=== PATIENT | female | born 1950 | race Caucasian/White ===

== ENCOUNTER 2021-08-13 14:26 | Emergency (ER) | payer OTHER, BC ==
[~2021-08-13] VITALS: Ht 170.2 cm; Wt 90.7 kg
[2021-08-13] MEDS ORDERED: AIRDUO DIGIHAL1 EAC1 INH (14:49)
[2021-08-13] MEDS ORDERED: GEODON40 MG PO (14:51)
[2021-08-13] MEDS ORDERED: GEODON80 MG PO (14:52)
[2021-08-13] MEDS ORDERED: TOPROL XL50 MG (14:53)
[2021-08-13] MEDS ORDERED: LEVO-T100 MCG PO (14:53)
[2021-08-13 15:03] LABS: ABSOLUTE NEUTROPHILS 4.8 thou/uL (1.4-8.2); BASOPHILS 0.7 % (0.0-2.0); HEMATOCRIT 38.9 % (37.0-47.0); HEMOGLOBIN 12.7 gm/dL (12.0-15.0); LYMPHOCYTES 20.5 % (24.0-44.0); MCH 31.2 pg (26.0-34.0); MCHC 32.6 g/dL (28.0-37.0); MCV 95.5 fL (80.0-100.0); MONOCYTES 7.2 % (1.0-8.0); PLATELET COUNT 210 thou/uL (150-400); POLYS 68.6 % (36.0-66.0); RBC 4.07 mil/uL (4.20-5.00); RDW 14.3 % (10.5-14.5)
[2021-08-13 15:10] LABS: CALCIUM 10.2 mg/dL (8.5-10.1); CREATININE 1.4 mg/dL (0.6-1.0); POTASSIUM 3.9 mmol/L (3.5-5.1)
[2021-08-13] MEDS ORDERED: VALIUM10 MG PO (17:04)
[2021-08-13] MEDS ORDERED: HUMALOG100 UNIT/1 SUBQ (17:04)
[2021-08-13] MEDS ORDERED: OZEMPIC1 MG/0.71 SUBQ (17:04)
[2021-08-13 21:05] LABS: URINE BILIRUBIN NEGATIVE (Negative); URINE BLOOD NEGATIVE (Negative); URINE CLARITY SL CLOUDY; URINE COLOR YELLOW; URINE GLUCOSE-RANDOM* NEGATIVE (Negative); URINE KETONES NEGATIVE (Negative); URINE NITRITE-REFLEX NEGATIVE (Negative); URINE PROTEIN (DIPSTICK) NEGATIVE (Negative); URINE UROBILINOGEN 0.2 E.U./dl (0.2-1.0)
[2021-08-13 21:06] LABS: URINE LEUKOCYTES-REFLEX 1+ (Negative)
[2021-08-13 21:14] LABS: AMP/METHAMP Negative (Negative); BARBITURATES Negative (Negative); BENZODIAZEPINES POSITIVE (Negative); COCAINE Negative (Negative); METHADONE Negative (Negative); OPIATES Negative (Negative); PCP Negative (Negative)
[2021-08-13 21:26] LABS: MUCUS 0-3 Light strn/LPF (None Seen); SQUAMOUS 0-3 Few /LPF (0-3); URINE RBC 3-10 Few /HPF (NONE SEEN); URINE WBC-REFLEX 6-15 Few /HPF (0-5)
[2021-08-13 21:27] LABS: CALCIUM OXALATE 4-10 Moderate /LPF (None Seen); HYALINE CASTS 0-3 Few /LPF (None Seen)
[2021-08-13 21:31] VITALS: BP 141/82
--- NOTE | 2021-08-14 07:09 | EKG ---
[place] [address] [facility] [place] [address] ELECTROCARDIOGRAM REPORT Name: SCAR MENDOZA [facility] [id number] Admission: 08/13/21 Attend Phys: Discharge: 08/13/21 Date of : 46 Report #: [id number] [facility] ED Test Date: 2021-08-13 Test Time: 14:41:06 Pat Name: SCAR MENDOZA Department: Room: Gender: F Transition Program [facility] 1950 Requested By: Alex Hurst Order Number: [id number] MD: Brien Higgins Measurements Intervals [place] Rate: 93 P: 23 OK: 150 QRS: 1 QRSD: 85 T: 127 QT: 346 QTc: 431 Interpretive Statements Sinus rhythm Low voltage, precordial leads No previous ECG available for comparison Electronically Signed On 08-14-2021 7:09:36 CDT by Brien Higgins [email or web address] <ELECTRONICALLY SIGNED> By: Brien Higgins MD, [facility] 08/14/21 0709 1441 1441 Brien Higgins MD, FACC /EPI
== END 2021-08-13 21:45 ==
LOC: ER 14:26
PROVIDERS: Nurse Practitioner
DX: Z13.30 Encounter for screening examination for mental health and behavioral disorders, unspecified (principal); Z20.822 Contact with and (suspected) exposure to COVID-19; E11.9 Type 2 diabetes mellitus without complications; J45.909 Unspecified asthma, uncomplicated; Z79.899 Other long term (current) drug therapy; Z88.2 Allergy status to sulfonamides

== ENCOUNTER 2021-08-13 15:35 | Inpatient (IN) | payer OTHER, BC ==
[~2021-08-13] VITALS: Ht 162.6 cm; Wt 72.6 kg
[~2021-08-13 15:35] MED LIST: AIRDUO DIGIHAL1 EAC1 INH; GEODON40 MG PO; GEODON80 MG PO; LEVO-T100 MCG PO; TOPROL XL50 MG
[2021-08-13] MEDS ORDERED: HUMALOG100 UNIT/1 SUBQ (17:04)
[2021-08-13] MEDS ORDERED: VALIUM10 MG PO (17:04)
[2021-08-13] MEDS ORDERED: OZEMPIC1 MG/0.71 SUBQ (17:04)
--- NOTE | 2021-08-13 23:31 | NUR ---
PT WAS ADMITTED TO [facility] FROM [facility] ON AT 2145. PT WAS COOPERATIVE WITH ADMISSION PROCESS. PT WAS ALERT AND ORIENTED X3. PT STATED HER MAIN ISSUE IS FEELING VERY DEPRESSED. PT STATED HER DOCTOR WANTED HER TO BE ADMITTED. PT STATED SHE HAS A HISTORY OF BIPOLAR. PT STATED THAT SHE HAS BEEN FEELING VERY TIRED LATELY. PT STATED SHE HAS FALLEN SIX TIMES IN THE LAST SIX MONTHS. PT LIVES AT HOME WITH HER , WHO PT STATES IS HAVING "COGNITIVE DECLINE." SKIN ASSESSMENT WAS PERFOMED; SKIN WAS UNREMARKABLE OTHER THAN BEING DRY. PT DOES HAVE A HEALED WOUND ON HER LEFT WRIST THAT PT STATES SHE OBTAINED WHEN "CHOPPING WOOD." [place] PT'S MAIN CONCERN WAS GETTING A SLEEP MEDICATION. PT STATED SHE HAS BEEN TAKING VALIUM FOR 40 YEARS. PT WANTED TO TAKE VALIUM TO SLEEP TONIGHT. VITAL SIGNS WERE OBTAINED ON ADMIT; BLOOD PRESSURE WAS 151/101. OBTAINED ORDERS FOR LOPRESSOR STARTED TONIGHT. PT DENIED SI/HI AND AVH.
[2021-08-13 23:47] VITALS: BP 151/101
[2021-08-14 05:59] LABS: CHOLESTEROL 261 mg/dL (<200); HDL CHOLESTEROL 39 mg/dL (>40); LDL CHOLESTEROL 182 mg/dL (<100); TC:HDL 6.7 Ratio (Not establshd); TRIGLYCERIDE 204 mg/dL (<150); VLDL 41 mg/dL (<40)
[2021-08-14 06:28] LABS: SERUM ASSESSMENT Clear
[2021-08-14 09:24] VITALS: BP 131/80
[2021-08-14 11:17] VITALS: BP 131/80
--- NOTE | 2021-08-14 13:50 | NUR ---
PATIENT CARE RESUMMED AT 0700. PATIENT WAS IN HER ROOM IN BED APON SHIFT ARRIVAL. PATIENT DENIES BEING IN ANY PAIN, SI/HI/VH/AH. PATIENT STATED SHE WAS HAVING SOME ANXIETY AND WAS AGGITATED. PATIENT STATED "TAKES EVERYTHING TOO NOT JUST START SCREAMING." NURSING STAFF WAS ABLE TO CONSOLE AND EDUCATED THE PATIENT. PATIENT STATED SHE DIDN'T SLEEP AND NEEDS A "SLEEPER" IN ORDER TO DO SO. PATIENT APPEARS RESTLESS UPON ASSESSMENT. LUNG SOUNDS ARE CLEAR, ABDOMEN IS SOFT AND BOWEL SOUNDS ARE PRESENT IN ALL 4 QUADRANTS. PATIENT STATED SHE ENJOYS READING AND HELPS TO CALM HER. PATIENT STATED DURING HER ASSESSMENT THAT SHE WAS HARD OF HEARING. NURSING STAFF OFFERED THE PATIENT HER HEARING AIDS AND THE PATIENT DENIES WANTING THEM. PATIENT ATE 25% OF HER BREAKFAST STATING SHE DOESNT EAT MUCH IN THE MORNING AND PREFERS LATER MEALS. WILL CONTINUE TO MONITOR PATIENT FOR SAFETY AND BEHAVIORS.
[2021-08-14 19:39] VITALS: BP 132/68
--- NOTE | 2021-08-14 22:46 | NUR ---
AT ONSET OF PICTURE FRAMER PT WAS RESTING IN BED ASLEEP. THIS SHIFT PT WAS ALERT AND ORIENTED X4. PT WAS CALM, PLEASANT AND COOPERATIVE. PT EXPRESSED FRUSTRATION WITH NOT RECEIVING VALIUM HERE IN THE HOSPITAL, BUT IT IS PRECRIBED FROM HER OUTPATIENT PSYCHIATRIST. PT WAS CONVERSATIONAL WITH RN. 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 PT MOVED TO [place] TO BE CLOSER TO HER DAUGHTER. PT WAS COMPLIANT WITH VITAL SIGNS AND MEDICATIONS. DURING VITAL SIGNS PT'S O2 WAS 87% WHILE SUPINE. RN RE-CHECKED O2 WITH PATIENT SITTING UPRIGHT AND O2 WAS 97%. PT STATED SHE HAS SLEEP APNEA AND USES A CPAP AT HOME, BUT SHE WAS NOT ALLOWED TO BRING CPAP TO THE UNIT. RN WILL CONTINUE TO MONITOR O2 PERIODICALLY THROUGHOUT THE NIGHT. PT DENIED SI, HI AND AVH. CONTINUES TO ENDORSE DEPRESSION. PT STATED SHE DID NOT CALL HER TODAY AND NEEDS A BREAK FROM HIM. PT STATED HER HAS SOME "COGNITIVE DECLINE." FALL PRECAUTIONS ARE IN PLACE. WILL CONTINUE TO MONITOR.
[2021-08-15 01:06] LABS: GLYCOHEMOGLOBIN (HGB A1C) 7.2 % (4.8-5.6)
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
[2021-08-15 09:37] VITALS: BP 119/63
--- NOTE | 2021-08-15 12:34 | NUR ---
PT ALERT AND ORIENTED TIMES FOUR, WITH FLAT SAD AFFECT. PT DENIES SI/HI/AH/VH/PAIN. PT TOLERATES MEDS AND MEALS. PT ATTENDED GROUPS THIS SHIFT. LITTLE INTERACTION WITH STAFF NONE WITH PEERS. PT UP WITH WALKER. WILL CONTINUE TO MONITOR.
[2021-08-15 19:29] VITALS: BP 119/73
--- NOTE | 2021-08-16 04:35 | NUR ---
PATIENT RESTING IN HER ROOM. SHE IS AAOX3. DENIES PAIN OR NEEDS AT THIS TIME. PATIENT ROOM IS AT SIDE OF NURSE STATION DUE TO HER NEED OF CPAP. PATIENT PRESENTS WITH FLAT AFFECT AND APPEARS TO SHOW SIGNS OF DEPRESSION. SHE IS AMBULATORY AND STEADY ON HER FEET ALTHOUGH SHE WALKS AT SLOW PACE. COMPLIANT WITH MEDICATION AND TREATMENT. VSS. WILL CONTINUE TOMONITOR FOR CHANGE IN STATUS.
[2021-08-16 07:09] LABS: HIV ANTIBODY Non Reactive (Non Reactive)
[2021-08-16 09:49] VITALS: BP 114/73
--- NOTE | 2021-08-16 13:37 | NUR ---
PATIENT SLEEPING WITH CPAP WHEN CARE WAS ASSUMED AT 0700, TRY GETTING PATIENT UP BUT SHE COMPLAINED OF BEING TOO TIRED, SHE SLEPT FOR ANOTHER 1HR, PATIENT IS ALERT AND ORIENTED X4, BOWEL SOUND ACTIVE WITH SOFT AND ROUNDED ABDOMEN, BREATH SOUND CLEAR, SKIN INTACT, NO EDEMA NOTED, SHE TOOK HER MEDICATION WHOLE, ATTEMD AFTERNOON GROUP, PATIENT IS ABLE TO VERBALIZE NEEDS, FALL PRECUATION IN PLACE, PATIENT DENIES SI/HI. WILL CONTINUE TO MONITOR PATIENT SAFETY AND BEHAVIOR.
[2021-08-16 19:12] VITALS: BP 115/55
[2021-08-16 22:06] LABS: SYPHILIS AB Non Reactive (Non Reactive)
--- NOTE | 2021-08-17 02:09 | NUR ---
PATIENT APPEARS DROWSY WITHDRAWN AND DEPRESSED. WALKS AT VERY SLOW PACE. DENIES PAIN OR NEEDS. STATES THAT SHE JUST WANTS HER CPAP AND TO GO TO SLEEP. INFORMED PATIENT THAT I WOULD BRING HER CPAP WITH HER HS MEDS. SHE TOOK ALL OF HER MEDS AND WENT TO BED. DENIED PAIN OR NEEDS. WILL CONTINUE TO MONITOR.
[2021-08-17 09:01] VITALS: BP 115/78
--- NOTE | 2021-08-17 13:32 | NUR ---
CARE ASSUMED AT 0700, PATIENT SLEEPING ON CPAP, TOOK THE CPAP AWAY BY 0820, SHE IS ALERT AND ORIENTED X3, SHE ATTEND GROUP @AM, PLEASANT WITH CARE, ACTIVE BOWEL SOUND WITH SOFT ABDOMEN, BREATH SOUND CLEAR, VSS, TOOK MEDICATION WHOLE WITH NO PROBLEM, PATIENT AMBULATE ON A STEADY GAIT, FALL PRECAUTION IN PLACE, PATIENT DENIES SI/HI
[2021-08-17 14:51] LABS: ABSOLUTE NEUTROPHILS 3.8 thou/uL (1.4-8.2); BASOPHILS 1.1 % (0.0-2.0); EOSINOPHILS 4.7 % (0.0-3.0); HEMATOCRIT 39.5 % (37.0-47.0); LYMPHOCYTES 24.9 % (24.0-44.0); MCH 31.6 pg (26.0-34.0); MCHC 32.8 g/dL (28.0-37.0); MCV 96.4 fL (80.0-100.0); MONOCYTES 6.5 % (1.0-8.0); PLATELET COUNT 213 thou/uL (150-400); POLYS 62.8 % (36.0-66.0); RDW 14.5 % (10.5-14.5)
[2021-08-17 15:03] LABS: CALCIUM 9.1 mg/dL (8.5-10.1); CREATININE 1.2 mg/dL (0.6-1.0); POTASSIUM 4.4 mmol/L (3.5-5.1)
--- NOTE | 2021-08-17 17:44 | NUR ---
BREANA met with the Pt and completed a SLUMS. Pt scored 17/30. BREANA also educated Pt on DPOA. Pt wants to make her her DPOA, however she admitted that he was unable to make decisions. Pt did not wish to complete the document at this time. BREANA will continue to follow
[2021-08-17 19:30] VITALS: BP 136/83
[2021-08-17 20:00] VITALS: BP 136/83
[2021-08-18 09:51] VITALS: BP 122/72
[2021-08-18 10:18] VITALS: BP 122/72
--- NOTE | 2021-08-18 14:09 | NUR ---
RESUMMED CARE FROM OVERNIGHT SHIFT THIS AM, PATIENT ALERT ORIENTED TIMES 3. PATIENT ATE BREAKFAST TOOK MEDICATION WITHOUT INCIDENCE, PATIENT DENIES SI/HI/AH/VH AT PRESENT. PATIENT TOOK SHOWER TODAY AND HAD COVID TEST DONE TODAY. PATIENTS ABDOMEN SOFT BOWEL SOUNDS PRESENT PATIENTS LUNGS CLEAR. PATIENT CALM COOPERATIVE WILL CONTINUE TO MONITOR PATIENT FOR SAFETY AND BEHAVIORS.
[2021-08-18 19:56] VITALS: BP 129/83
--- NOTE | 2021-08-19 02:41 | NUR ---
Assumed care on 08/18/21 @ 1900, VSS, FSBS @ HS 191, with 3 units of sliding scale administred. Reports that she takes more sliding scale for a 191 FSBS. Requested and provided Trazadone 100 @ HS for insomnia. A&Ox3-4, takes meds whole, had a bm on 08/18 and a shower. Denies SI/HI, Acknowledges Depression, reporting is having a hard time reading, "I just cant seem to read" Reports Anxiety "BAD, that's killing me" again, denies SI and HI. Will continue to monitor for comfort and safety as per unit protocol.
--- NOTE | 2021-08-19 02:48 | NUR ---
@ 0200, reported that her toilet is stopped up. Large amount of toilet paper and stool removed from the toilet, toilet seat disinfected and floor cleaned. A half roll of tissue provided and briefs.
[2021-08-19 07:36] VITALS: BP 121/73
[2021-08-19 10:26] VITALS: BP 121/73
--- NOTE | 2021-08-19 11:47 | NUR ---
RESUMMED CARE FROM OVERNIGHT SHIFT THIS AM, PATIENT IN ROOM LYING QUIET. PATIENT ALERT ORIENTED TIMES 4 PATIENT DENIES SI/HI/AH/VH AT PRESENT. PATIENT STATES SHE HAD SOME DIARRHEA I GAVE PATIENT IMODIUM TIMES 2. PATIENTS ABDOMEN SOFT BOWEL SOUNDS PRESENT, PATIENTS LUNGS CLEAR. PATIENT CALM COOPERATIVE PATIENT DID NOT WANT TO GO TO GROUP THIS AM DUE TO EPISODES OF DIARRHEA. PATIENT HAS NOT DISPLAYED ANY BEHAVIORS CALM COOPERATIVE; WILL CONTINUE TO MONITOR PATIENT FOR SAFETY AND BEHAVIORS.
[2021-08-19 19:50] VITALS: BP 111/62
[2021-08-19 20:00] VITALS: BP 111/62
--- NOTE | 2021-08-20 02:04 | NUR ---
PATIENT HAS BEEN IN BED SINCE BEGINNING OF SHIFT. SHE HAS BEEN A/0X4. SHE HAS BEEN CALM AND COOPERATIVE. CPAP MACHINE PLACED ON PATIENT AROUND 2200. DR EASTMAN WAS CALLED TO SEE IF PATIENT NEEDED 1:1. HE STATES SINCE PATIENT IS ORIENTED AND ROOM NEAR NURSE STATION THAT SHE DID NOT NEED 1:1. PATIENT HAS DENIED PAIN. SHE DENIES SI/HI/AVH. SHE IS INDEPENDENT WITH CARES AND UP WITH WALKER. ROUTINE ROUNDS TO ASSESS SAFETY AND STATUS OF PATIENT.
[2021-08-20 09:07] VITALS: BP 96/61
[2021-08-20 09:39] VITALS: BP 128/72
--- NOTE | 2021-08-20 11:31 | NUR ---
RESUMMED CARE FROM OVERNIGHT SHIFT THIS AM, PATIENT IN ROOM LYING QUIET IN BED. PATIENT DID NOT EAT BREAKFAST SO I HAD HER TO DRINK MILK TO TAKE MEDICATIONS. I EXPLAINED TO HER THAT SHE IS TAKING MEDICATION AND IT IS NOT GOOD TO NOT EAT HER MEALS. PATIENTS AFFECT IS FLAT SHE ALERT ORIENTED TIMES 3. PATIENT DENIES SI/HI/AH/VH AT PRESENT, PATIENTS ABDOMEN SOFT BOWEL SOUNDS PRESENT. PAIENTS LUNGS CLEAR PATIENT DID NOT GET UP TO GO TO GROUPS; WILL CONTINUE TO MONITOR PATIENT FOR SAFETY AND BEHAVIORS.
--- NOTE | 2021-08-20 12:33 | NUR ---
RT Progress Note- Katrina has been minimally engaged in unit program, despite putting forth decent effort to do so. She sleeps throughout much of the day and when present in groups is often unable to remain awake for duration of meeting. When she is alert, she is flat in affect and does not independently engage with others unless prompted and encouraged. Katrina is able to identify things she enjoys such as reggae music, but has not shown improved mood at this time. TECHNICIAN'S HELPER will continue to encourage participation as she is able.
--- NOTE | 2021-08-20 17:50 | NUR ---
BREANA and Dr. Madsen met with the Pt. Pt's daughter Kiki attended by phone. An update was given on the Pt and medications reviewed. A recommendation for 02/06 care and supervision was given. Dr. Madsen informed that nuropsy testing would be completed on Friday. Kiki wanted the Pt's , Umer, to be apart of the meeting. Pt was in agreement. There was attempt to contact Umer and add him to the meeting. Umer did not answer a voice mail was left requesting a return call. February inquired about care in the Pt's home. Education was provided on Home health aide services. Pt stated she did not have the funds to pay for an community living coach services. Other options such as having family memeber or friends provide care in the home for the Pt were discussed. DPOA and guardianship were also discussed during this meeting. The Pt did state she would like for Kiki to be her DPOA. BREANA will assist the Pt with completing the DPOA documents. There were no other concerns. BREANA will continue to follow
[2021-08-20 20:00] VITALS: BP 104/57
--- NOTE | 2021-08-21 03:14 | NUR ---
Assumed care on 08/20/21 @ 1900 patient refused Lipitor 80mg, oxybutynin 5mg, and Senna/Docusate 8.6/50mg reporting that she has to take too much medication. PRN Ondonstatin 4mg provided for nausea and was noted to be sleeping on follow up. Requesed Fioracet for migraine pain, however was asleep when order was secured. Also requested Haldol and AtivanIM. Ativan 0.5mg provided for anxiety, but not the IM request. Low fall risk, bed in low position, bed locked and bathroom light on. Will continue to monitor for safety and comfort as per unit protocol.
[2021-08-21 09:54] VITALS: BP 107/67
[2021-08-21 10:15] VITALS: BP 107/67
--- NOTE | 2021-08-21 13:40 | NUR ---
Katrina was alert and oriented to person, place, time, and situation. Pt was able to give hx regarding her diagnosis and expressed that her depression has worsened due to this. She told caption writer that her depression was a 5/10 when she was first admitted but currently rates her depression 8.5/10; 10 being the worst. She rates her anxiety 9/10 and expressed she slept poorly last night but pt reports she forgot and did not use her CPAP which most likely contributed to her poor sleep. Pt denied current SI/HI/CALLES and contracted for safety, but did express "with this dementia diagnosis I don't know if I would have those thoughts in the future"; emotional support given. Pt was medication and meal compliant, without difficulty. Morning insulin was not given due to paraments and BG of 122. Pt received 3 units of insulin lispro at lunch for a BG of 153. Pt described her mood as "anxious and irritable" but did not display any irritable behaviors with this RN and none noted throughout the day. She was withdrawn and isolative to her room, but did participate in groups. Pt's morning amlodipine was held due to BP of 107/67 and HR of 69, metoprolol was given per orders by Dr. Gong and parameters were added for amolodipine and metoprolol. Pt denied physical complaints this shift and voiced wishes to go home soon. Will continue to monitor.
--- NOTE | 2021-08-21 17:16 | NUR ---
Pt completed a DPOA. A copy was placed in the chart. Pt will d/c 08/22/2021 @ 1300. Pt's family will provide tansportation
[2021-08-21 19:59] VITALS: BP 118/70
--- NOTE | 2021-08-22 06:26 | NUR ---
08-21-21 CARE TRANSFERRED 1899. LATER PT AAOX4, VSS, RR EVEN AND NONLABORED ON RA. PT DENIES SI/HI, REPORTS PAIN BI-LAT KNEE SCORES 7 ON 0-10 SCALE. PT PRESENTS CALM AND COOPERATE DURING NURSING ASSESSMENT. DURING MEDICATION ADMIN PT HAD NO DIFFICULTIES. DURING REASSESSMENT OF PAIN PT WAS RESTING WITH EYES CLOSED. PT WILL CONTINUE TO BE MONITOR PER [facility] PROTOCOL.
[2021-08-22 07:40] VITALS: BP 100/42
[2021-08-22 09:40] VITALS: BP 100/42
[2021-08-22] MEDS ORDERED: LOPRESSOR50 PO (11:48)
[2021-08-22] MEDS ORDERED: NORVASC5 MG PO (11:49)
[2021-08-22] MEDS ORDERED: NEURONTIN 300M300 M2 PO (11:49)
[2021-08-22] MEDS ORDERED: ZIPRASIDONE HCL20 M1 PO (11:50)
[2021-08-22] MEDS ORDERED: PROTONIX40 M2 PO (11:51)
[2021-08-22] MEDS ORDERED: SYNTHROID200 MCG PO (11:52)
[2021-08-22] MEDS ORDERED: VITAMIN D3125 MC1 PO (11:53)
[2021-08-22] MEDS ORDERED: VITAMIN B-12500 MCG PO (11:53)
[2021-08-22 12:20] VITALS: BP 100/42
--- NOTE | 2021-08-22 13:52 | NUR ---
Pt was discharged home with daughter, February. Discharge summary was reviewed with pt, and with daughter upon discharge. Daughter was encouraged to call with any questions. Daughter had requested medications be sent to [facility] on [address] as pt will be staying with her tonight prior to returning home. Pt denied SI/HI/CALLES and looked forward to discharging. Pt was discharged with all belongings including personal items from security and medications from pharmacy, CPAP, and suitcase.
--- NOTE | 2021-08-22 16:31 | NUR ---
Pt has the following upcoming appointments Dr. Petersen ( psychiatrist) 08/29/2021 @ 9:30am Dr. Fuentes (psychologist) 09/03/2021 @1300 JESS Singer (PCP) 09/04/2021 @ 1500 This information was put in the discharge document and verbally to the Pt
--- NOTE | 2021-08-27 00:03 | D ---
[facility] [place] [address] DISCHARGE SUMMARY Name: SCAR MENDOZA Room #: 520B-B DIS IN M.R.#: [id number] Admission: 08/13/21 Attend Phys: Ghada No MD Discharge: 08/22/21 Date of : 46 Report #: [id number] THIS REPORT FOR: cc: FAM - No family physician/PCP FAM - No family physician/PCP Juwan Gong DO ~ DATE OF SERVICE: 08/22/2021 INPATIENT PSYCHIATRIC DISCHARGE SUMMARY ATTENDING PSYCHIATRIST: Juwan Gong D.O. BAKERY TECHNICIAN: Brenda Leigh M.D. ADDITIONAL CODING SPECIALIST HOME HEALTH: Cristobal Davis, Ph.D., Neuropsychology. DISCHARGE DIAGNOSES: Major neurocognitive disorder, unspecified etiology; bipolar 1 disorder by history. MEDICAL COMORBIDITIES: Include frequent falls, diabetes mellitus type 2 with neuropathy, hypertension, urinary tract infection, completed Keflex course, history of asthma. The patient is being discharged to her daughter, February's home and then planning to return to [place] to live with her , Danny. Aftercare was currently arranged by our social services assistant is as follows, ____ Dr. Petersen on 08/29/2021 at 9:30 a.m., Dr. Carroll, psychologist on 09/03/2021 at 1500, and PCP, Jenna Escobedo on 09/04/2021 at 1500. All of these appointments are important. In addition at the time of this dictation, Dr. Davis's report is not uploaded that will be faxed to the psychologist and psychiatrist, Dr. Carroll and Dr. Petersen. DIET: The patient is on a diabetic 1800 calorie diet, Glucerna shake recommended with meals. DISCHARGE MEDICATIONS: Included trazodone 50-75 mg at bedtime, Rxed as Trazodone 50 mg #45. She takes Osempic subQ weekly, insulin lispro 30 units subQ at bedtime was her home regimen. She should take her blood sugar twice daily and her regimen should be adjusted, metoprolol tartrate 50 mg oral twice daily for high blood pressure, Norvasc 5 mg oral daily, gabapentin 300 mg oral twice daily, Geodon 60 mg oral twice daily, gabapentin for neuropathy, Geodon for mood stabilization, pantoprazole 40 mg oral daily GErd, levothyroxine 200 mcg oral daily, for thyroid replacement, cyanocobalamin 500 mcg oral daily, vitamin D3 5000 international units oral daily, Glucerna twice a day. LABORATORY DATA: Significant laboratories on this admission, hematology was [address] [address] DISCHARGE SUMMARY Name: SCAR MENDOZA [facility] [id number] Admission: 08/13/21 Attend Phys: Ghada No MD Discharge: 08/22/21 Date of : 46 Report #: [id number] normal. Chemistries on this admission, abnormalities include a TSH initially in the 60s, reduced to 48.993, making noncompliance with thyroid replacement. Vitamin D low at 17.4, replacement started; B12 normal at 908. At daughter's request, I did start her on 500 mcg a day B12. Lipids, HDL 39, LDL 182, total cholesterol 261. Hemoglobin A1c slightly elevated at 7.2. GFR 44, creatinine 1.2, BUN 21, sodium 141, potassium 4.4, chloride 104. Urinalysis this admission positive for aerococcus urinae. COVID-19 serology this admission was negative. Syphilis was negative. HIV was negative. Activity as tolerated tolerated. Recommended against driving. The patient requires 24-hour assistance and supervision which will be provided by her , Danny. The patient did make daughter DPOA this admission. I did not enact DPOA since she is returning home, and not to fpc. REASON FOR ADMISSION: Back on the , a 71-year-old female brought by her daughter, February, complaints including depression, chronic tiredness, suicidal statements to daughter. She had recent admission at [facility] in [place] for wandering. HOSPITAL COURSE: The patient was admitted to Geriatric Psychiatry Unit. Initially, I made contact with Dr. Fonseca and Dr. Carroll, who are psychiatrist and psychologist in [place]. They did not have her diagnosed her with dementia prior to admission. She is being prescribed doses of 40-50 mg a day of Valium. I did discuss my concerns with the doctors involved. It sounds like her is of limited means and may have cognitive problems himself. We detoxified the patient from Valium. The SLUMS improved from [address] Davis was consulted. His report is not came in 2 days after discharge and diagnosed Major Neurocognitive Disorder with poor insight. The patient remains somewhat subdued, but did participate in groups. She did not require seclusion or restraints. She wished to be discharged. She feels no imminent threat. will provide 24-hour care. Daughter is aware of concerns. PHYSICAL EXAMINATION: VITAL SIGNS: On day of discharge are as follows: Temperature 36.2, pulse 58, respirations 18, BP 100/42. BMI 27.5, weight 72.575 kilos. MUSCULOSKELETAL: Slow gait, normal station. GENERAL: Older than age-appearing female. MENTAL STATUS EXAMINATION: Well-developed female. Attention, fair. Concentration, limited. Speech, slow rate, normal volume. Thought process, linear and goal directed. Thought content, focused on discharge. Denied SI, [facility] [address] [place] [address] DISCHARGE SUMMARY Name: SCAR MENDOZA Room #: 520B-B [facility] IN M.R.#: [id number] Admission: 08/13/21 Attend Phys: Ghada No MD Discharge: 08/22/21 Date of : 46 Report #: [id number] HI, and auditory, visual or tactile hallucinations. Mood and affect, constricted, congruent "okay". Memory known to be impaired. Insight limited. Judgment limited. Fund of knowledge below average. PROGNOSIS: For this patient is guarded and will depend on the amount of support she gets. Aftercare is essential. <ELECTRONICALLY SIGNED> By: Juwan Gong DO 08/27/21 [id number] Juwan Gong, /nt
== END 2021-08-22 13:10 | disposition home or self-care (01) | DRG 885 ==
LOC: SBH
PROVIDERS: Psychiatry & Neurology Psychiatry; ADMIT Psychiatry & Neurology Psychiatry; ATTEND Psychiatry & Neurology Psychiatry
PROC: 5A09357 Assistance with Respiratory Ventilation, Less than 24 Consecutive Hours, Continuous Positive Airway Pressure (ICD-10-PCS; principal; 2021-08-15)
PROC: 3E02340 Introduction of Influenza Vaccine into Muscle, Percutaneous Approach (ICD-10-PCS; principal; 2021-08-15)
DX: F31.9 Bipolar disorder, unspecified (principal); R45.851 Suicidal ideations; N39.0 Urinary tract infection, site not specified; F01.50 Vascular dementia, unspecified severity, without behavioral disturbance, psychotic disturbance, mood disturbance, and anxiety; R29.6 Repeated falls; E11.40 Type 2 diabetes mellitus with diabetic neuropathy, unspecified; Z88.2 Allergy status to sulfonamides; I10 Essential (primary) hypertension; E03.9 Hypothyroidism, unspecified; J45.909 Unspecified asthma, uncomplicated; F41.1 Generalized anxiety disorder; F93.0 Separation anxiety disorder of childhood; Z20.822 Contact with and (suspected) exposure to COVID-19; Z23 Encounter for immunization
CPT/HCPCS: 10880